=== PATIENT | female | born 1975 | race Caucasian/White ===

== ENCOUNTER 2018-06-06 15:29 | Emergency (ER) | payer SELFPAY ==
[2018-06-06 15:43] VITALS: BP 164/90
[2018-06-06 15:58] LABS: Bilirubin,Urine NEG (Negative); Blood,Urine NEG (Negative); Color,Urine Yellow (Yellow); Protein,Urine <15 mg/dL mg/dL (Negative); RBC,Urine < 1.0 /HPF (0.0-6.0); Urobilinogen,Urine < 2.0 mg/dL (<2.0)
[2018-06-06 16:05] LABS: HCG Qualitative,Urine Negative (Negative)
--- NOTE | 2018-06-06 17:01 | Emergency Department Report ---
ED General Adult HPI - General Chief complaint: Abdominal Pain Stated complaint: ABD PAIN/DIZZINESS Time Seen by Provider: 06/06/18 16:43 Source: patient, family Mode of arrival: Ambulatory Limitations: No Limitations - History of Present Illness Initial comments: Patient is a 43-year-old female who is presenting with 2-3 days of increased cough congestion and body aches. Patient states cough is productive of clear sputum. Patient denies fevers chills nausea vomiting so throat at this time. Patient states that approximately one ago her son was ill with the flu and she was sick as well with a cough and chills. Patient states the chills and some body aches improved however her cough is persistent but is worse until the last 2-3 days. - Related Data Previous Rx's Medication Instructions Recorded Last Taken Type ALBUTEROL Inhaler (OR & NICU) 2 puff IH QID PRN #1 inhalation 06/06/18 Unknown Rx [ProAir HFA Inhaler] Azithromycin [Zithromax] 250 mg PO DAILY #6 tablet 06/06/18 Unknown Rx Benzonatate [Tessalon Perles] 100 mg PO Q8HR #10 capsule 06/06/18 Unknown Rx predniSONE [Deltasone] 20 mg PO QDAY #5 tab 06/06/18 Unknown Rx Allergies Allergy/AdvReac Type Severity Reaction Status Date / Time No Known Allergies Allergy Unverified 06/06/18 15:43 ED Review of Systems ROS: Stated complaint: ABD PAIN/DIZZINESS Other details as noted in HPI Comment: All other systems reviewed and negative ED Past Medical Hx - Past Medical History Previous Medical History?: No - Surgical History Past Surgical History?: No - Social History Smoking Status: Never Smoker Substance Use Type: None - Medications Home Medications: Home Medications Medication Instructions Recorded Confirmed Last Taken Type ALBUTEROL Inhaler (OR & NICU) 2 puff IH QID PRN #1 inhalation 06/06/18 Unknown Rx [ProAir HFA Inhaler] Azithromycin [Zithromax] 250 mg PO DAILY #6 tablet 06/06/18 Unknown Rx Benzonatate [Tessalon Perles] 100 mg PO Q8HR #10 capsule 06/06/18 Unknown Rx predniSONE [Deltasone] 20 mg PO QDAY #5 tab 06/06/18 Unknown Rx ED Physical Exam - General Limitations: No Limitations General appearance: alert, in no apparent distress - Head Head exam: Present: atraumatic, normocephalic - Eye Eye exam: Present: normal appearance - ENT ENT exam: Present: mucous membranes moist - Neck Neck exam: Present: normal inspection - Respiratory Respiratory exam: Present: normal lung sounds bilaterally. Absent: respiratory distress, wheezes, rales, rhonchi - Cardiovascular Cardiovascular Exam: Present: regular rate, normal rhythm. Absent: systolic murmur, diastolic murmur, rubs, gallop - GI/Abdominal GI/Abdominal exam: Present: soft, normal bowel sounds. Absent: distended, tenderness, guarding, rebound - Extremities Exam Extremities exam: Present: normal inspection - Back Exam Back exam: Present: normal inspection - Neurological Exam Neurological exam: Present: alert, oriented X3 - Psychiatric Psychiatric exam: Present: normal affect, normal mood - Skin Skin exam: Present: warm, dry, intact, normal color. Absent: rash ED Course Vital Signs 06/06/18 15:38 Temperature 97.9 F Pulse Rate 122 H Respiratory 18 Rate Blood Pressure 164/90 O2 Sat by Pulse 99 Oximetry ED Medical Decision Making - Radiology Data Radiology results: image reviewed (chest x-ray shows borderline cardiomegaly with bibasilar atelectasis versus early infiltrate) - Medical Decision Making Patient is a 43-year-old female who is presenting with a cough cold congestion. Patient states she's had a cough for approximately 3 weeks however symptoms have worsened over the last 2-3 days. Chest x-ray shows atelectasis versus early infiltrate. Patient be started on antibiotics and medicines for symptomatic relief and the patient will be discharged home. Patient is not hypoxic and is showing no respiratory distress and is good candidate for outpat ient therapy. Critical care attestation.: If time is entered above; I have spent that time in minutes in the direct care of this critically ill patient, excluding procedure time. ED Disposition Clinical Impression: Acute bronchitis Qualifiers: Bronchitis organism: unspecified organism Qualified Code(s): J20.9 - Acute bronchitis, unspecified Disposition: - TO HOME OR SELFCARE Is pt being admited?: No Does the pt Need Aspirin: No Condition: Stable Instructions: Acute Bronchitis (ED) Referrals: PRIMARY CARE, [Primary Care Provider] - 3-5 Days Time of Disposition: 17:25
--- NOTE | 2018-06-06 17:26 | XRay Report ---
FINAL REPORT EXAM: XR CHEST ROUTINE 2V HISTORY: cough TECHNIQUE: Two view chest PA and lateral PRIORS: None. FINDINGS: Cardiac and mediastinal contours are unremarkable. No focal pulmonary infiltrate is identified. No pleural fluid collection seen. Pulmonary vasculature is unremarkable. IMPRESSION: Negative two-view chest
== END 2018-06-06 17:58 | disposition home or self-care (01) ==
LOC: ED 15:29
DX: J20.9 Acute bronchitis, unspecified (principal)
CPT/HCPCS: 71046; 81001; 81025